=== PATIENT | female | born 1935 | race Caucasian/White ===

== ENCOUNTER 2017-01-22 16:21 | Emergency (ER) | payer MEDICARE, OTHER ==
--- NOTE | ~2017-01-22 | CR2 ---
[facility] A Service of [facility] RADIOLOGY TEXT RESULTS PATIENT: EMA CADE LOCATION: SED : 37 UNIT #: [id number] AGE: [address]: Tam Madsen MD SEX: F ORDER DR: [id number] [place] [id number] E MR#: [id number] Acc #: [id number] NAME: EMA CADE : 1935 SEX: F STUDY DATE/TIME: 01/22/2017 17:16 UNIT: SED ROOM: STUDY DESCRIPTION: CR Abdomen Acute Series Attending Physician: Tam Madsen M.D. Ordering Physician: Tam Madsen M.D. Primary Care Physician: Joan Azar A.P.R.N. MEDICAL IMAGING REPORT This report is preliminary unless electronic signature is present. EXAM Acute abdominal series INDICATIONS Vomiting and generalized abdominal pain for the past 3 weeks. PROCEDURE Frontal view of the chest, supine and upright views of the abdomen and pelvis COMPARISON None FINDINGS Mild cardiomegaly. No dense consolidation. Tortuous thoracic aorta versus hiatal hernia. Previous cholecystectomy. Nonobstructed pattern. Moderate to moderately large colonic stool burden. IMPRESSION 1. Moderate to moderately large colonic stool burden. No obstruction or free air. 2. No dense consolidation of the chest. Dictated by... Aiden Castillo M.D. THIS IS AN ELECTRONICALLY VERIFIED REPORT Aiden Castillo M.D. at 01/23/2017 10:38 AM EED/to TD: 01/22/2017 19:09 JOB #: [id number] [facility] A Service [facility] RADIOLOGY TEXT RESULTS PATIENT: EMA CADE LOCATION: SED : 37 UNIT #: [id number] AGE: [address]: Tam Madsen MD SEX: F ORDER DR: MEDICAL IMAGING REPORT Page 1 of 1
[~2017-01-22 16:21] MED LIST: ATENOLOL25 MG; CAPOZIDE; CLARITIN10 M2 PO; HYDROCHLOROTHIA25 MG PO; KCL PO; LORTAB 5/500 TA1 TA2 PO; LYRICA PO; MELOXICAM15 MG PO; MOBIC PO; NORVASC PO; NORVASC10 MG; PERCOCET5/325 PO; SYNTHROID; SYNTHROID25 MCG
[2017-01-22] MEDS ORDERED: ZITHROMAX PO (16:34)
[2017-01-22] MEDS ORDERED: OTC NASAL SPRAY (16:34)
[2017-01-22 17:40] LABS: URINE SOURCE CLEAN CATCH
[2017-01-22 17:42] LABS: BASOPHIL# 0.1 X10e3 (0-0.3); BASOPHIL% 0.9 % (0-2.5); DIFF IND NO; EOSINOPHIL# 0.1 X10e3 (0-0.7); EOSINOPHIL% 1.4 % (0.0-7.0); HEMATOCRIT 44.9 % (35.0-45.0); HEMOGLOBIN 15.4 gm/dL (12.0-16.0); LYMPHOCYTE# 1.6 X10e3 (1.0-3.5); LYMPHOCYTE% 16.3 % (17.0-45.0); MEAN CELL VOLUME 85.8 FL (83-96); MEAN CORPUSCULAR HEMOGLOBIN 29.5 PG (28-34); MEAN CORPUSCULAR HGB CONC 34.4 g/dL (30-36); MEAN PLATELET VOLUME 7.3 FL (6.5-11.5); MONOCYTE% 9.7 % (3.0-12.0); NEUTROPHIL% 71.7 % (40-75); PLATELET COUNT 294 X10e3 (140-420); RED BLOOD COUNT 5.23 X10e (3.90-5.30); RED CELL DISTRIBUTION WIDTH 13.3 % (11.0-15.5); WHITE BLOOD COUNT 9.8 X10e3 (4.0-10.5)
[2017-01-22 17:43] LABS: URINE APPEARANCE CLEAR; URINE BILIRUBIN NEG (NEG); URINE BLOOD NEG (NEG); URINE COLOR YELLOW; URINE GLUCOSE NEG (NORM); URINE KETONE NEG (NEG); URINE LEUKOCYTE ESTERASE 2+ (NEG); URINE NITRATE NEG (NEG); URINE PROTEIN NEG (NEG); URINE UROBILINOGEN 0.2 MG/DL (NORM)
[2017-01-22 17:46] LABS: MICRO INDICATED? YES
[2017-01-22 17:50] LABS: URINE RBC 0-2 /[HPF] (0-2)
[2017-01-22 17:51] LABS: CULTURE INDICATED? YES; URINE BACTERIA 1+ (NEG); URINE SQUAMOUS EPITHELIAL CELL OCCAS /[HPF]
[2017-01-22 18:01] LABS: ALBUMIN SERUM 4.8 g/dL (3.5-5.0); BILIRUBIN, DIRECT 0.1 mg/dL (0.0-0.2); BILIRUBIN,INDIRECT 0.5 mg/dL (0.0-0.9); BILIRUBIN,TOTAL 0.6 mg/dL (0.2-2.0); BUN/CREATININE RATIO 17.77; CREATININE SERUM 0.9 mg/dL (0.6-1.4); GLOM FILT RATE Estimated 60.9 mL/min (>60); POTASSIUM 3.8 mmol/L (3.5-5.1)
== END 2017-01-22 18:32 | disposition home or self-care (01) ==
LOC: SED 16:21
PROVIDERS: Emergency Medicine
DX: K59.00 Constipation, unspecified (principal); J06.9 Acute upper respiratory infection, unspecified; I10 Essential (primary) hypertension; Z90.49 Acquired absence of other specified parts of digestive tract; Z79.2 Long term (current) use of antibiotics; Z88.5 Allergy status to narcotic agent; Z88.8 Allergy status to other drugs, medicaments and biological substances
CPT/HCPCS: 36415; 74022; 80048; 80076; 81003; 83690; 85025; 87086; 96361; 96374; 96375; 99284; J2405

== ENCOUNTER 2017-01-27 09:29 | Emergency (ER) | payer MEDICARE, OTHER ==
--- NOTE | ~2017-01-27 | CR117 ---
[facility] A Service of [facility] / [facility] RADIOLOGY TEXT RESULTS PATIENT: EMA CADE LOCATION: SED : 37 UNIT #: [id number] AGE: [address]: Armand Serna MD SEX: F ORDER DR: [id number] [address] [address] [id number] E MR#: [id number] Acc #: [id number] NAME: EMA CADE : 1935 SEX: F STUDY DATE/TIME: 01/27/2017 1002 UNIT: SED ROOM: STUDY DESCRIPTION: CR Finger 2 View Thumb Rt Attending Physician: Armand Serna M.D. Ordering Physician: Armand Serna M.D. Primary Care Physician: Joan Azar A.P.R.N. MEDICAL IMAGING REPORT This report is preliminary unless electronic signature is present. EXAM Right thumb, 3 views, 01/27/2017, 1002 hours. CLINICAL HISTORY 81-year-old woman who was cleaning a grill when the lid fell on her hand. Laceration to mid thumb with pain today. COMPARISON Right wrist film, 02/02/2013. FINDINGS AP, lateral, and oblique views demonstrate no foreign body. There is joint space loss at the first metacarpophalangeal joint with endplate sclerosis and spurring, felt likely osteoarthritis similar to wrist film 02/02/2013. IMPRESSION No fracture, dislocation, or a foreign body. There is joint space loss, endplate sclerosis, and spurring at the first metacarpophalangeal joint which appears similar to the wrist film of 02/02/2013 and likely represents chronic osteoarthritis. Dictated by... Vijaya Betts M.D. THIS IS AN ELECTRONICALLY VERIFIED REPORT Vijaya Betts M.D. at 01/27/2017 2:29 PM GALE/meliton TD: 01/27/2017 10:29 [facility] A Service of [facility] / [facility] RADIOLOGY TEXT RESULTS PATIENT: EMA CADE LOCATION: [facility] : 37 UNIT #: [id number] AGE: [address]: Armand Serna MD SEX: F ORDER DR: JOB #: [id number] MEDICAL IMAGING REPORT Page 1 of 1
[~2017-01-27 09:29] MED LIST changes: +OTC NASAL SPRAY; +ZITHROMAX PO
== END 2017-01-27 11:00 | disposition home or self-care (01) ==
LOC: SED 09:29
DX: S61.011A Laceration without foreign body of right thumb without damage to nail, initial encounter (principal); Z79.899 Other long term (current) drug therapy; Z88.5 Allergy status to narcotic agent; X58.XXXA Exposure to other specified factors, initial encounter; Y92.009 Unspecified place in unspecified non-institutional (private) residence as the place of occurrence of the external cause
CPT/HCPCS: 12002; 73140; 99283

== ENCOUNTER 2017-02-24 17:25 | Emergency (ER) | payer MEDICARE, OTHER | END 2017-02-24 18:02 | disposition home or self-care (01) | LOC: SED 17:25 | DX: J30.9 Allergic rhinitis, unspecified (principal); I10 Essential (primary) hypertension; E03.9 Hypothyroidism, unspecified; Z90.49 Acquired absence of other specified parts of digestive tract; Z88.6 Allergy status to analgesic agent; Z79.899 Other long term (current) drug therapy | CPT/HCPCS: 99283 ==

== ENCOUNTER 2017-03-09 05:48 | Emergency (ER) | payer MEDICARE, OTHER ==
--- NOTE | ~2017-03-09 | EKG ---
PATIENT: EMA CADE UNIT #: [id number] Ventricular Rate: 73 BPM Atrial Rate: 73 BPM P-R Interval: 160 ms QRS Duration: 78 ms Q-T Interval: 400 ms QTC Calculation(Bezet): 440 ms P [place]: 38 degrees Calculated R [place]: -11 degrees Calculated T [place]: 16 degrees Diagnosis Line: Normal sinus rhythm Diagnosis Line: Voltage criteria for left ventricular hypertrophy Diagnosis Line: Abnormal ECG Diagnosis Line: When compared with ECG of 02-OCT-2012 15:57, Diagnosis Line: No significant change was found Diagnosis Line: Confirmed by MALOU ACEVEDO MD ([id number]) on Diagnosis Line: 03/10/2017 11:04:06 AM INTERPRETING MD: CURTIS SIN
[2017-03-09] MEDS ORDERED: REMERON SOLTAB15 M1 PO (05:58)
[2017-03-09] MEDS ORDERED: CELEXA20 MG PO (05:58)
== END 2017-03-09 07:10 | disposition home or self-care (01) ==
LOC: SED 05:48
DX: F41.9 Anxiety disorder, unspecified (principal); I10 Essential (primary) hypertension; F32.9 Major depressive disorder, single episode, unspecified; Z90.49 Acquired absence of other specified parts of digestive tract; Z88.8 Allergy status to other drugs, medicaments and biological substances
CPT/HCPCS: 93005; 99283

== ENCOUNTER 2017-03-09 12:52 | Emergency (ER) | payer MEDICARE, OTHER ==
--- NOTE | ~2017-03-09 | EKG ---
PATIENT: EMA CADE UNIT #: [id number] Ventricular Rate: 94 BPM Atrial Rate: 94 BPM P-R Interval: 142 ms QRS Duration: 76 ms Q-T Interval: 352 ms QTC Calculation(Bezet): 440 ms P [place]: 30 degrees Calculated R [place]: 0 degrees Calculated T [place]: 25 degrees Diagnosis Line: Normal sinus rhythm Diagnosis Line: Normal ECG Diagnosis Line: When compared with ECG of 02-OCT-2012 15:57, Diagnosis Line: No significant change was found Diagnosis Line: Confirmed by MALOU ACEVEDO MD ([id number]) on Diagnosis Line: 03/10/2017 11:07:04 AM INTERPRETING MD: CURTIS SIN
--- NOTE | ~2017-03-09 | EKG ---
PATIENT: EMA CADE UNIT #: [id number] Ventricular Rate: 83 BPM Atrial Rate: 83 BPM P-R Interval: 140 ms QRS Duration: 82 ms Q-T Interval: 386 ms QTC Calculation(Bezet): 453 ms P [place]: 44 degrees Calculated R [place]: -11 degrees Calculated T [place]: 28 degrees Diagnosis Line: Normal sinus rhythm Diagnosis Line: Moderate voltage criteria for LVH, may be normal Diagnosis Line: variant Diagnosis Line: Borderline ECG Diagnosis Line: When compared with ECG of 09-MAR-2017 13:06, Diagnosis Line: (unconfirmed) Diagnosis Line: No significant change was found Diagnosis Line: Confirmed by MALOU ACEVEDO MD ([id number]) on Diagnosis Line: 03/10/2017 11:07:18 AM INTERPRETING MD: CURTIS SIN
[~2017-03-09 12:52] MED LIST changes: +CELEXA20 MG PO; +REMERON SOLTAB15 M1 PO
[2017-03-09 15:29] LABS: BASOPHIL% 0.6 % (0-2.5); EOSINOPHIL# 0.1 X10e3 (0-0.7); HEMATOCRIT 42.1 % (35.0-45.0); HEMOGLOBIN 14.1 gm/dL (12.0-16.0); LYMPHOCYTE# 1.5 X10e3 (1.0-3.5); LYMPHOCYTE% 22.9 % (17.0-45.0); MEAN CELL VOLUME 87.9 FL (83-96); MEAN CORPUSCULAR HEMOGLOBIN 29.4 PG (28-34); MEAN CORPUSCULAR HGB CONC 33.5 g/dL (30-36); MEAN PLATELET VOLUME 7.2 FL (6.5-11.5); MONOCYTE# 0.8 X10e3 (0-1.0); MONOCYTE% 12.3 % (3.0-12.0); NEUTROPHIL# 4.2 X10e3 (1.5-7.1); NEUTROPHIL% 62.2 % (40-75); PLATELET COUNT 221 X10e3 (140-420); RED BLOOD COUNT 4.79 X10e (3.90-5.30); RED CELL DISTRIBUTION WIDTH 13.9 % (11.0-15.5); WHITE BLOOD COUNT 6.7 X10e3 (4.0-10.5)
[2017-03-09 15:31] LABS: POC - CKMB <1.0 ng/mL (0.0-7.9); POC - TROPONIN <0.05 ng/mL (<=0.05)
[2017-03-09 15:32] LABS: DIFF IND NO
[2017-03-09 15:46] LABS: CALCIUM SERUM 8.9 mg/dL (8.4-10.2); CREATININE SERUM 0.9 mg/dL (0.6-1.4); GLOM FILT RATE Estimated 60.9 mL/min (>60); POTASSIUM 3.7 mmol/L (3.5-5.1)
== END 2017-03-09 16:21 | disposition home or self-care (01) ==
LOC: CED 12:52
PROVIDERS: Emergency Medicine
DX: R00.2 Palpitations (principal); R20.2 Paresthesia of skin; R11.10 Vomiting, unspecified; Z88.8 Allergy status to other drugs, medicaments and biological substances
CPT/HCPCS: 36415; 80048; 82553; 84443; 84484; 85025; 93005; 99285

== ENCOUNTER 2017-03-30 18:46 | Emergency (ER) | payer MEDICARE, OTHER ==
[~2017-03-30] VITALS: Ht 160 cm; Wt 69.4 kg
--- NOTE | ~2017-03-30 | EKG ---
PATIENT: EMA CADE UNIT #: [id number] Ventricular Rate: 90 BPM Atrial Rate: 90 BPM P-R Interval: 166 ms QRS Duration: 78 ms Q-T Interval: 380 ms QTC Calculation(Bezet): 464 ms Calculated R [place]: -27 degrees Calculated T [place]: -27 degrees Diagnosis Line: Normal sinus rhythm Diagnosis Line: Minimal voltage criteria for LVH, may be normal Diagnosis Line: variant Diagnosis Line: Borderline ECG Diagnosis Line: When compared with ECG of 09-MAR-2017 14:23, Diagnosis Line: Inverted T waves have replaced nonspecific T wave Diagnosis Line: abnormality in Inferior leads Diagnosis Line: Confirmed by CARL ROBERTS MD ([id number]) on Diagnosis Line: 04/01/2017 5:01:40 PM INTERPRETING MD: ALEJANDRA SIN
--- NOTE | ~2017-03-30 | CR63 ---
[facility] A Service of [facility] & [facility] RADIOLOGY TEXT RESULTS PATIENT: EMA CADE LOCATION: [facility] : 37 UNIT #: [id number] AGE: [address]: Masoud Grubbs DO SEX: F ORDER DR: [id number] [facility] [address] [place], [place] [address] [id number] E MR#: [id number] Acc #: [id number] NAME: EMA CADE : 1935 SEX: F STUDY DATE/TIME: 03/30/2017 20:18 UNIT: [facility] ROOM: STUDY DESCRIPTION: CR Chest 2 View Attending Physician: Masoud Grubbs D.O. Ordering Physician: Masoud Grubbs D.O. Primary Care Physician: Joan Azar A.P.R.N. MEDICAL IMAGING REPORT This report is preliminary unless electronic signature is present EXAM Two-view chest HISTORY 81-year-old female with excessive mucus, shortness of air began 2 days ago, became worse. Previous smoker. COMPARISON 10/02/2012 FINDINGS Two views of the chest demonstrates cardiomegaly without failure. No focal airspace disease or consolidation. No effusions. Probable hiatal hernia. Mild aortic atherosclerotic changes. Osseous structures unremarkable for age. IMPRESSION No definite acute abnormality. Probable small to moderate hiatal hernia. Dictated by... Chaim Merino M.D. THIS IS AN ELECTRONICALLY VERIFIED REPORT Chaim Merino M.D. at 03/31/2017 5:38 PM Buster TD: 03/31/2017 08:56 JOB #: [id number] MEDICAL IMAGING REPORT Page 1 of 1 COPY
--- NOTE | ~2017-03-30 | CT16 ---
[facility] A Service of [facility] & [facility] RADIOLOGY TEXT RESULTS PATIENT: EMA CADE LOCATION: [facility] : 37 UNIT #: [id number] AGE: [address]: Masoud Grubbs DO SEX: F ORDER DR: [id number] [facility] [address] [place], [place] [address] [id number] E MR#: [id number] Acc #: [id number] NAME: EMA CADE : 1935 SEX: F STUDY DATE/TIME: 03/30/2017 22:50 UNIT: [facility] ROOM: STUDY DESCRIPTION: CT Angio Chest for PE Attending Physician: Masoud Grubbs D.O. Ordering Physician: Masoud Grubbs D.O. Primary Care Physician: Joan Azar A.P.R.N. MEDICAL IMAGING REPORT This report is preliminary unless electronic signature is present EXAM Chest CTA 03/30/2017 22:50 INDICATION Shortness of air since 2 o'clock this afternoon. Elevated D-dimer. Patient reports sore throat with productive cough for 4 months. TECHNIQUE Axial images were obtained through the chest following IV contrast administration. 3-D reformats were obtained. No comparison. This CT examination was performed with one or more of the following radiation dose reduction techniques: automatic exposure control, adjustment of mA and/or kV according to patient size, and iterative reconstruction. FINDINGS There is a complex mixed density left thyroid nodule extending into the upper mediastinum. It has some coarse associated calcifications. It measures at least 3.9 x 3.4 x 4.1 cm. Outpatient thyroid ultrasound evaluation is recommended unless this has been performed elsewhere. No pulmonary embolism or aortic dissection is seen. There is no pleural or pericardial effusion. Moderate hiatal hernia is present containing the gastric fundus. There is thoracic dextroscoliosis. There is atherosclerotic disease. The lungs are clear except for some atelectasis in the left lower lobe adjacent to the hernia. Upper abdomen shows cholecystectomy. IMPRESSION 1. No pulmonary embolism or aortic dissection. 2. Moderate hiatal hernia containing the gastric fundus. 3. Left side thyroid mass. Outpatient thyroid ultrasound evaluation is recommended unless this has been performed elsewhere. 4. No acute infiltrates. 5. Cholecystectomy. [facility]. [facility] A Service of [facility] & [facility] RADIOLOGY TEXT RESULTS PATIENT: EMA CADE LOCATION: [facility] : 37 UNIT #: [id number] AGE: [address]: Masoud Grubbs DO SEX: F ORDER DR: Dictated by... Mele Dior Jr., M.D. THIS IS AN ELECTRONICALLY VERIFIED REPORT Mele Dior Jr., M.D. at 03/31/2017 9:09 PM JEOVANY/den TD: 03/31/2017 10:09 JOB #: [id number] MEDICAL IMAGING REPORT Page 1 of 1 COPY
[2017-03-30 20:12] LABS: BASOPHIL# 0.1 X10e3 (0-0.3); BASOPHIL% 0.8 % (0-2.5); EOSINOPHIL# 0.2 X10e3 (0-0.7); EOSINOPHIL% 2.7 % (0.0-7.0); HEMATOCRIT 41.7 % (35.0-45.0); HEMOGLOBIN 13.9 gm/dL (12.0-16.0); LYMPHOCYTE# 1.9 X10e3 (1.0-3.5); LYMPHOCYTE% 29.1 % (17.0-45.0); MEAN CORPUSCULAR HEMOGLOBIN 29.4 PG (28-34); MEAN CORPUSCULAR HGB CONC 33.4 g/dL (30-36); MONOCYTE# 0.8 X10e3 (0-1.0); MONOCYTE% 11.9 % (3.0-12.0); NEUTROPHIL# 3.6 X10e3 (1.5-7.1); NEUTROPHIL% 55.5 % (40-75); PLATELET COUNT 264 X10e3 (140-420); RED BLOOD COUNT 4.74 X10e (3.90-5.30); WHITE BLOOD COUNT 6.6 X10e3 (4.0-10.5)
[2017-03-30 20:14] LABS: DIFF IND NO
[2017-03-30 20:31] LABS: BUN/CREATININE RATIO 28.75; CREATININE SERUM 0.8 mg/dL (0.6-1.4); GLOM FILT RATE Estimated 70.2 mL/min (>60)
[2017-03-30 23:03] LABS: POC - CKMB 1.2 ng/mL (0.0-7.9); POC - TROPONIN <0.05 ng/mL (<=0.05)
== END 2017-03-31 00:45 | disposition home or self-care (01) ==
LOC: CED 18:46
PROVIDERS: Emergency Medicine
DX: J20.9 Acute bronchitis, unspecified (principal); J32.9 Chronic sinusitis, unspecified; I10 Essential (primary) hypertension; Z90.49 Acquired absence of other specified parts of digestive tract; Z87.891 Personal history of nicotine dependence
CPT/HCPCS: 36415; 71020; 71275; 80048; 82553; 84484; 85025; 85379; 87651; 93005; 94640; 96361; 96374; 96375; 99285; J2405; J2930; Q9967